=== PATIENT | male | born 1985 | race Caucasian/White ===

== ENCOUNTER → 2020-07-31 | Outpatient (CLI) | payer OTHER ==
[~2020-07-31] MED LIST: MELO7.5T29 PO
--- NOTE | 2020-07-31 12:31 | PDOC1 ---
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 Patient ports pain was fairly immediate and then got worse as time went on and has been worse over the past 2 years with significant weakness and tingling in the right leg mostly in the posterior lateral thigh anterior thigh medial thigh into the medial lower leg to some extent but mostly in the upper thigh and back patient reports is in the back and right hip as well described as constant shooting intermittent intensity worse with activity walking standing changing positions better with sitting or laying down does not awaken her from sleep at night does not affect his bowel bladder control but does affect is ability to walk as his leg fatigues very sign ificantly on the right side. Patient scribes as constant shooting radiating intermittent intensity but always present. Patient rates his disability rating 0-10 10 being the worst is a 1 with family home responsibilities social activity sexual behavior and self-care 5 with recreational activities and to with life support activities. Patient did have an MRI scan of the lumbar spine dated July 05, 2018 showing broad-based right foraminal disc protrusion at L4-5 measuring 3 mm with mild foraminal narrowing. Patient reports no loss of motor function but significant fatigability with even walking more than 10 to 15 minutes. Patient reports no bowel or bladder incontinence no motor or sensory loss. PAST MEDICAL HISTORY: PMH: No major medical problems or conditions PREVIOUS SURGERIES: Past Surgical Hx: Septoplasty 2019 CURRENT MEDICATIONS: Current Meds: Active Scripts Medications Dose Route/Sig Max Daily Dose Days Date Category Meloxicam 7.5 Mg Tablet 1 Tab PO DAILY 30 07/31/20 Reported ALLERGIES; Allergies: Coded Allergies: No Known Drug Allergies (Unverified , 07/31/20) FAMILY HISTORY: Family Hx: No major medical problems or conditions he is aware of SOCIAL HISTORY: Social Hx: Patient does not drink alcohol does not smoke not use any illegal illicit or recreational drugs is lives with his spouse 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 Extraocular movements are intact and symmetrical. Oral cavity: Mucous membranes moist and pink. Dentition is intact. NECK: Shows anterior throat supple without palpable lymphadenopathy noted. Swallow reflex symmetrical. CHEST: Shows normal on inspection. Breath sounds are clear bilaterally, no rales rhonchi wheezes auscultated. HEART: Shows S1, S2 clear. No murmurs auscultated. ABDOMEN: Soft, nontender, nondistended, flat. No palpable organomegaly is noted. No rebound or guarding demonstrated. BACK: Shows spine grossly in the midline. Normal-appearing cervical lordotic curvature. There is slightly increased thoracic kyphosis, some minor flattening of the lumbar lordotic curvature. Lumbar paraspinous muscles show symmetrical on inspection, on palpation shows some moderate tenderness diffusely throughout the upper, middle and lower distribution of the paraspinous muscles without specific trigger points, without radiation of pain. The patient has good rotational motion of the lumbar spine, both laterally as well as extension and flexion without significant difficulty. No tenderness over the spinous processes, sacrum or sacroiliac regions. EXTREMITIES: Lower extremities show deep tendon reflexes 2+ in the patellar and tendo calcaneus tendons. Motor exam is 5 on a scale of 5 with right dorsiflexion, extension, quadriceps and hamstring flexion and 5/5 on the left. Peripheral pulses are 1+ posterior tibial. No peripheral edema is noted bilaterally. Lower extremities are warm and dry to touch, equal in color and appearance. Straight leg raise noted to be negative bilaterally. Gaenslen's and Brennan's maneuvers are negative as well. The patient is able to stand, stand on her toes that difficulty loss of balance walks with a normal-appearing gait does not appear to favor the right or left lower extremity significantly is not use any assistive devices to ambulate. SKIN: Shows warm and dry, good turgor. No edema. No sores, rashes or bruising throughout. IMPRESSION: Impression: 35-year-old male with approximate 2-year history low back pain right lower extremity pain with weakness in the right lower extremity in an L4-5 dermatomal distribution MRI scan lumbar spine as noted Plan: Options were discussed with the patient including conservative regular management physical therapies interventional techniques he like to pursue dimensional techniques. Patient has physical therapy starting again next week and we discussed a lumbar epidural steroid injection using descriptions as well as anatomical models to describe the procedure. Patient will wait for preauthorization and return for lumbar epidural steroid injection translaminar approach at the L4-5 level. In the meantime we will call in a prescription for Medrol Dosepak patient was given instructions will side effects beware with the medication. MATTHIAS CINTRON MD Jul 31, 2020 12:31
== END | disposition home or self-care (01) ==
LOC: PNCL 10:56
PROVIDERS: ATTEND Anesthesiology
DX: M54.5 Low back pain (principal); M79.604 Pain in right leg; R53.1 Weakness; Z79.899 Other long term (current) drug therapy
CPT/HCPCS: 99205; G0463

== ENCOUNTER → 2020-08-17 | Outpatient (CLI) | payer OTHER ==
[~2020-08-17] MED LIST changes: +ERGO500027 PO; +IOHEXOL 180 MG/ML 10 ML VIAL. ONE; +THIA50TA4 PO; +methylPREDNISolone ACETATE 40 MG/ML VIAL. ONE; +methylPREDNISolone ACETATE 80 MG/ML VIAL. ONE
--- NOTE | 2020-08-17 10:29 | PDOC ---
Progress Note - Pain Clinic Date of Service: DOS: DATE: 08/17/20 TIME: 10:27 Diagnosis: Dx: Lumbar radiculopathy with lumbar degenerative disease and lumbar herniated disc History or Present Illness: HPI: 35-year-old male returns follow-up status post initial evaluation preauthorization for lumbar epidural steroid injection. Patient reports still significant pain low back right lower extremity significantly not different after last visit although the Medrol Dosepak that we try did help for few days and decrease the pain but the pain is back patient reports is in the low back right lower extremity posterior gluteus posterior lateral thigh anterior thigh anteromedial thigh medial lower leg patient ports dull and shooting radiating constant at times with walking activity patient reports no loss of motor function no bowel or bladder incontinence. Patient rates her pain as a 4 on a scale of 10 is worse over the past week 2 on average to its least and is a 2 today. Physical Exam: VS: Pressure is 120/87 pulse 67 respirations 16 temperature is 98.1 F height is 68 inches weight is 185 pounds PE: PHYSICAL EXAMINATION: GENERAL: The patient is awake, alert, oriented, appropriate, very pleasant demeanor HEENT: Shows normocephalic, atraumatic. Extraocular movements are intact and symmetrical. Oral cavity: Mucous membranes moist and pink. NECK: Shows anterior throat supple without palpable lymphadenopathy noted. Swallow reflex symmetrical. CHEST: Shows normal on inspection. Breath sounds are clear bilaterally. HEART: Shows S1, S2 clear. No murmurs auscultated. ABDOMEN: Soft, nontender, nondistended. No palpable organomegaly is noted. No rebound or guarding demonstrated. BACK: Shows spine grossly in the midline. Normal-appearing cervical lordotic curvature. There is mildly increased thoracic kyphosis, some flattening of the lumbar lordotic curvature. Lumbar paraspinous muscles show symmetrical on inspection, on palpation shows some moderate tenderness diffusely throughout the upper, middle and lower distribution of the paraspinous muscles, but without specific trigger points, without radiation of pain. The patient has good rotational motion of the lumbar spine, both laterally as well as extension and flexion without significant difficulty. No tenderness over the spinous processes, sacrum or sacroiliac regions. EXTREMITIES: Lower extremities show deep tendon reflexes 2+ in the patellar and tendo calcaneus tendons. Motor exam is 5 on a scale of 5 with right dorsiflexion, extension, quadriceps and hamstring flexion and 5/5 on the left. Peripheral pulses are 1+ posterior tibial. No peripheral edema is noted bilaterally. Lower extremities are warm and dry to touch, equal in color and appearance SKIN: Shows warm and dry, good turgor. No edema. No sores, rashes or bruising throughout. Procedure: Procedure: Options discussed with the patient. Patient chart was reviewed his current medication regimen updated current review of systems updated today as well. We will proceed with a lumbar epidural steroid injection today with fluoroscopic guidance. Risks were discussed including but not limited to: Bleeding, infection, possibility of epidural hematoma and subsequent neurological compromise, dural puncture, headaches, spinal cord and/or nerve damage, side effects of steroid medication, and poor results regarding pain control. Patient understands wished to proceed. Patient will return to clinic in approximately 2 weeks for follow-up, was counseled as to return appointment activity level and side effects to be aware of. Medication Injected: Med Injected: Procedure is lumbar epidural steroid injection under local anesthetic using sterile prep and drape at the L4-5 level using C-arm fluoroscopic guidance in both AP and lateral views medications injected is 120 mg Depo-Medrol + 10 mL preservative-free normal saline and 2 mL contrast- condition at discharge is stable patient tolerated procedure well had no complications. Condition at Discharge: Condition at Discharge: Patient discharge is stable, patient tolerated procedure well and had no complications. MATTHIAS CINTRON MD Aug 17, 2020 10:29
== END | disposition home or self-care (01) ==
LOC: PNCL 09:29
PROVIDERS: ATTEND Anesthesiology
DX: M51.16 Intervertebral disc disorders with radiculopathy, lumbar region (principal); Z79.899 Other long term (current) drug therapy; Z98.890 Other specified postprocedural states
CPT/HCPCS: 62323; J1030; J1040; Q9965

== ENCOUNTER → 2020-08-31 | Outpatient (CLI) | payer OTHER ==
--- NOTE | 2020-08-31 11:16 | PDOC ---
Progress Note - Pain Clinic Date of Service: DOS: DATE: 08/31/20 TIME: 11:13 Diagnosis: Dx: Lumbar radiculopathy with lumbar degenerative disease and lumbar herniated disc History or Present Illness: HPI: 35-year-old male returns follow-up status post lumbar epidural steroid action x1. Patient reports about 100% improvement for the first day or so and then the pain returned in the low back and the right lower extremity posterior gluteus posterior lateral thigh anterior thigh groin medial thigh medial lower leg on the right side only. Patient reports no new motor or sensory deficits no new bowel or bladder incontinence or other complaints but still significant pain with walking standing changing positions better with sitting or laying down generally is not awakening from sleep at night. Patient reports the pain is at worst a 2 on a scale of 10 last week 1 on average 1 its least. Patient reports no new motor or sensory deficits no new bowel or bladder incontinence or other complaints. Physical Exam: VS: Pressure is 122/80 pulse 68 respirations 16 temperature 97.9 F weight is 185 pounds PE: PHYSICAL EXAMINATION: GENERAL: The patient is awake, alert, oriented, appropriate, very pleasant demeanor HEENT: Shows normocephalic, atraumatic. Extraocular movements are intact and symmetrical. NECK: Shows anterior throat supple without palpable lymphadenopathy noted. Swallow reflex symmetrical. CHEST: Shows normal on inspection. Breath sounds are clear bilaterally. HEART: Shows S1, S2 clear. No murmurs auscultated. ABDOMEN: Soft, nontender, nondistended. No palpable organomegaly is noted. BACK: Shows spine grossly in the midline. Normal-appearing cervical lordotic curvature. There is slightly increased thoracic kyphosis, some minor flattening of the lumbar lordotic curvature. Lumbar paraspinous muscles show symmetrical on inspection, on palpation shows some moderate tenderness diffusely throughout the upper, middle and lower distribution of the paraspinous muscles, but without specific trigger points, without radiation of pain. The patient has good rotational motion of the lumbar spine, both laterally as well as extension and flexion without significant difficulty. No tenderness over the spinous processes, sacrum or sacroiliac regions. EXTREMITIES: Lower extremities show deep tendon reflexes 2+ in the patellar and tendo calcaneus tendons. Motor exam is 5 on a scale of 5 with right dorsiflexion, extension, quadriceps and hamstring flexion and 5/5 on the left. Peripheral pulses are no posterior tibial. No peripheral edema is noted bilaterally. Lower extremities are warm and dry to touch, equal in color and appearance. SKIN: Shows warm and dry, good turgor. No edema. No sores, rashes or bruising throughout. Procedure: Procedure: Options were discussed with the patient. Patient chart reviewed his current medication regimen updated current review of systems updated today as well. We will proceed with a second in the series lumbar epidural steroid injection today with fluoroscopic guidance. Risks were discussed including but not limited to: Bleeding, infection, possibility of epidural hematoma and subsequent neurological compromise, dural puncture, headaches, spinal cord and/or nerve damage, side effects of steroid medication, and poor results regarding pain control. Patient understands wished to proceed. Patient return to clinic in approximately 2 weeks for follow-up, was counseled to return appointment activity level, and side effects to be aware of. Medication Injected: Med Injected: Procedure is lumbar epidural steroid injection under local anesthetic using sterile prep and drape at the L4-5 level using C-arm fluoroscopic guidance in both AP and lateral views medications injected is 120 mg Depo-Medrol + 10 mL preservative-free normal saline and 2 mL contrast- condition at discharge is stable patient tolerated procedure well had no complications. Condition at Discharge: Condition at Discharge: Edition at discharge stable, patient tolerated procedure well, and had no complications. MATTHIAS CINTRON MD Aug 31, 2020 11:16
== END | disposition home or self-care (01) ==
LOC: PNCL 10:11
PROVIDERS: ATTEND Anesthesiology
DX: M51.16 Intervertebral disc disorders with radiculopathy, lumbar region (principal); Z98.890 Other specified postprocedural states
CPT/HCPCS: 62323; J1030; J1040; Q9965

== ENCOUNTER → 2020-09-14 | Outpatient (CLI) | payer OTHER ==
[~2020-09-14] MED LIST changes: -ERGO500027 PO; +ERGO500089 PO
--- NOTE | 2020-09-14 10:37 | PDOC ---
Progress Note - Pain Clinic Date of Service: DOS: DATE: 09/14/20 TIME: 10:35 Diagnosis: Dx: Lumbar radiculopathy with lumbar degenerative disc disease and lumbar herniated disc History or Present Illness: HPI: 35-year-old male returns follow-up status post lumbar epidural steroid injection x2. Patient reports about 50% improvement overall in the low back and right lower extremity pain patient reports still some significant pain in the low back and the right leg posterior gluteus posterior lateral thigh lateral anterior th igh anterior medial thigh patient ports is aching and radiating worse with walking standing but better than it was increased activity to greater distance walking doing household activities work activities sleeping better at night does not awaken him from sleep. Patient reports the pain is a 2 on scale 10 is worse over the past week 1 on average 1 its least is a 1 today. Patient reports no new motor or sensory deficits no new bowel or bladder incontinence or other complaints. Physical Exam: VS: Pressure is 118/85 pulse 74 respirations are 20 temperature 98.0 F weight is 184 pounds PE: PHYSICAL EXAMINATION: GENERAL: The patient is awake, alert, oriented, appropriate, very pleasant demeanor HEENT: Shows normocephalic, atraumatic. Extraocular movements are intact and symmetrical. NECK: Shows anterior throat supple without palpable lymphadenopathy noted. Swallow reflex symmetrical. CHEST: Shows normal on inspection. Breath sounds are clear bilaterally. HEART: Shows S1, S2 clear. No murmurs auscultated. ABDOMEN: Soft, nontender, nondistended. No palpable organomegaly is noted. BACK: Shows spine grossly in the midline. Lumbar paraspinous muscles show symmetrical on inspection, on palpation shows some moderate tenderness diffusely throughout the upper, middle and lower distribution of the paraspinous muscles bilaterally, but without specific trigger points, without radiation of pain. The patient has good rotational motion of the lumbar spine, both laterally as well as extension and flexion without significant difficulty. No tenderness over the spinous processes, sacrum or sacroiliac regions. EXTREMITIES: Lower extremities show deep tendon reflexes 2+ in the patellar and tendo calcaneus tendons. Motor exam is 5 on a scale of 5 with right dorsiflexion, extension, quadriceps and hamstring flexion and 5/5 on the left. Peripheral pulses are 1+ posterior tibial. No peripheral edema is noted bilaterally. Lower extremities are warm and dry to touch, equal in color and appearance. SKIN: Shows warm and dry, good turgor. No edema. No sores, rashes or bruising throughout. Procedure: Procedure: Options were discussed with the patient. Patient's old chart was reviewed his current medication regimen updated current review of systems updated today as well. We will proceed with a third in the series lumbar epidural steroid injection today with fluoroscopic guidance. Risks were discussed including but not limited to: Bleeding, infection, possibility of epidural hematoma and subsequent neurological compromise, dural puncture, headaches, spinal cord and/or nerve damage, side effects of steroid medication, and poor results regarding pain control. Patient understands wished to proceed. Patient will return to clinic in approximate 2 weeks or as necessary, was counseled as to return appointment activity level and side effects to be aware of. Medication Injected: Med Injected: Procedure is lumbar epidural steroid injection under local anesthetic using sterile prep and drape at the L4-5 level using C-arm fluoroscopic guidance in both AP and lateral views medications injected is 120 mg Depo-Medrol + 10 mL preservative-free normal saline and 2 mL contrast- condition at discharge is stable patient tolerated procedure well had no complications. Condition at Discharge: Condition at Discharge: Condition at discharge stable, patient tolerated procedure well and had no complications. MATTHIAS CINTRON MD Sep 14, 2020 10:37
== END | disposition home or self-care (01) ==
LOC: PNCL 09:37
PROVIDERS: ATTEND Anesthesiology
DX: M51.16 Intervertebral disc disorders with radiculopathy, lumbar region (principal); Z98.890 Other specified postprocedural states
CPT/HCPCS: 62323; J1030; J1040; Q9965

== ENCOUNTER → 2020-09-28 | Outpatient (CLI) | payer OTHER ==
[~2020-09-28] MED LIST changes: +ERGO500027 PO; -ERGO500089 PO; -IOHEXOL 180 MG/ML 10 ML VIAL. ONE; -methylPREDNISolone ACETATE 40 MG/ML VIAL. ONE; -methylPREDNISolone ACETATE 80 MG/ML VIAL. ONE
--- NOTE | 2020-09-28 09:50 | PDOC ---
Progress Note - Pain Clinic Date of Service: DOS: DATE: 09/28/20 TIME: 09:47 Diagnosis: Dx: Lumbar radiculopathy with lumbar degenerative disease and lumbar herniated disc Right sacroiliitis History or Present Illness: HPI: 35-year-old male returns follow-up status post lumbar epidural steroid injections x3. Patient reports only about 50% improvement in low back pain in the right leg pain is better but the pain in the right posterior hip is still significant patient reports is radiating to the hip itself sometimes into the groin pulse into the hip posteriorly patient reports no further radiation to the lower extremity at this time patient reports is worse with change positions standing or sitting for prolonged periods generally does not awaken from sleep at night better with sitting or laying down patient reports he is currently doing physical therapy which is helpful but not getting the pain decreased completely patient reports his pain is a form scale 10 is worst in the past week 2 on average to its least and is a 2 today. Patient reports no new motor or sensory deficits no new bowel or bladder incontinence. Physical Exam: VS: Blood pressure is 108/77 pulse 71 respirations 16 temperature 98.1 F weight is 191 pounds PE: PHYSICAL EXAMINATION: GENERAL: The patient is awake, alert, oriented, appropriate, very pleasant demeanor HEENT: Shows normocephalic, atraumatic. Extraocular movements are intact and symmetrical. NECK: Shows anterior throat supple without palpable lymphadenopathy noted. Swallow reflex symmetrical. CHEST: Shows normal on inspection. Breath sounds are clear bilaterally. HEART: Shows S1, S2 clear. No murmurs auscultated. ABDOMEN: Soft, nontender, nondistended. No palpable organomegaly is noted. No rebound or guarding demonstrated. BACK: Shows spine grossly in the midline. Normal-appearing cervical lordotic curvature. There is slightly increased thoracic kyphosis, some minor flattening of the lumbar lordotic curvature. Lumbar paraspinous muscles show symmetrical on inspection, on palpation shows some moderate tenderness diffusely throughout the upper, middle and lower distribution of the paraspinous muscles but without specific trigger points, without radiation of pain. The patient has good rotational motion of the lumbar spine, both laterally as well as extension and flexion without significant difficulty. Patient has significant tenderness over the right posterior superior iliac spine as well as the right superior aspect of the sacroiliac joint but without radiation on palpation. Left side is nontender. EXTREMITIES: Lower extremities show deep tendon reflexes 2+ in the patellar and tendo calcaneus tendons. Motor exam is 5 on a scale of 5 with right dorsiflexion, extension, quadriceps and hamstring flexion and 5/5 on the left. Peripheral pulses are 1+ posterior tibial. No peripheral edema is noted bilaterally. Lower extremities are warm and dry to touch, equal in color and appearance. Gaenslen's maneuver is positive on the right only. SKIN: Shows warm and dry, good turgor. No edema. No sores, rashes or bruising throughout. Procedure: Procedure: Options discussed with the patient. Patient will chart reviews his current medication regimen updated current review of systems updated today as well. We will preauthorize patient for a right sacroiliac joint injection. Patient was shown some stretching exercises to do for the sacroiliac joints as well and will continue with physical therapy as scheduled. Medication Injected: Med Injected: None Condition at Discharge: Condition at Discharge: Condition at discharge is stable. MATTHIAS CINTORN MD Sep 28, 2020 09:50
== END | disposition home or self-care (01) ==
LOC: PNCL 09:30
PROVIDERS: ATTEND Anesthesiology
DX: M51.16 Intervertebral disc disorders with radiculopathy, lumbar region (principal); M46.1 Sacroiliitis, not elsewhere classified; Z79.899 Other long term (current) drug therapy
CPT/HCPCS: 99212; G0463

== ENCOUNTER → 2020-10-12 | Outpatient (CLI) | payer OTHER ==
[~2020-10-12] MED LIST changes: +BUPIVACAINE MPF 0.25% 10 ML VIAL. ONE; +IOHEXOL 180 MG/ML 10 ML VIAL. ONE; +methylPREDNISolone ACETATE 80 MG/ML VIAL. ONE
--- NOTE | 2020-10-12 09:39 | PDOC ---
Progress Note - Pain Clinic Date of Service: DOS: DATE: 10/12/20 TIME: 09:35 Diagnosis: Dx: Lumbar radiculopathy with lumbar degenerative disc disease and lumbar herniated disc Right sacroiliitis History or Present Illness: HPI: 35-year-old male returns for follow-up status post lumbar epidural steroid injections x3. Patient has clinical symptoms of right sacroiliitis and we had improved him for his right sacroiliac joint injection today. Patient is obtained authorization like to proceed. Patient returns still significant pain in the posterior hip on the right side worse with walking standing changing positions without significant difference or change since last evaluation. Patient reports the pain is radiating aching dull and tight in the right hip and into the gluteus as well as some in the low back. Patient rates as a 4 on a scale 10 is worse over the past week 3 on average to its least is a 3 today. Patient reports he is continue to do physical therapy and doing most this on his own as well at home which he feels is slightly helpful. Reports no new motor or sensory deficits no new bowel or bladder incontinence or other complaints. Physical Exam: VS: Blood pressure is 112/74 pulse 67 respiration 16 temperature 90.3 F weight is 193 PE: PHYSICAL EXAMINATION: GENERAL: The patient is awake, alert, oriented, appropriate, very pleasant ralph anor HEENT: Shows normocephalic, atraumatic. Extraocular movements are intact and symmetrical. Oral cavity: Mucous membranes moist and pink. NECK: Shows anterior throat supple without palpable lymphadenopathy noted. Swallow reflex symmetrical. CHEST: Shows normal on inspection. Breath sounds are clear bilaterally, no rales or rhonchi. HEART: Shows S1, S2 clear. No murmurs auscultated. ABDOMEN: Soft, nontender, nondistended, flat. No palpable organomegaly is noted. BACK: Shows spine grossly in the midline. Normal-appearing cervical lordotic curvature. There is slightly increased thoracic kyphosis, some minor flattening of the lumbar lordotic curvature. Lumbar paraspinous muscles show symmetrical on inspection, on palpation shows some moderate tenderness diffusely throughout the upper, middle and lower distribution of the paraspinous muscles, but without specific trigger points, without radiation of pain. The patient has good rotational motion of the lumbar spine, both laterally as well as extension and flexion without significant difficulty. Patient shows moderate to significant tenderness over the posterior superior iliac spine on the right as well as the superior aspect of the sacroiliac region. Left is nontender. EXTREMITIES: Lower extremities show deep tendon reflexes 2+ in the patellar and tendo calcaneus tendons. Motor exam is 5 on a scale of 5 with right dorsiflexio n, extension, quadriceps and hamstring flexion and 5/5 on the left. Peripheral pulses are 1+ posterior tibial. No peripheral edema is noted bilaterally. Lower extremities are warm and dry to touch, equal in color and appearance. Patient does still have a mildly positive Gaenslen's maneuver on the right side only with external rotation of the right hip and posterior displacement of the lower leg with significant pain in the sacroiliac region. Left side is negative. SKIN: Shows warm and dry, good turgor. No edema. No sores, rashes or bruising throughout. Procedure: Procedure: Options were discussed with the patient. Patient's old chart reviews his current medication regimen updated current review of systems updated today as well. We will proceed with a right sacroiliac joint injection today with fluoroscopic guidance. Risks were discussed including but not limited to bleeding infection possibility of intravascular injection sequelae spread to local anesthetic numbness side effects of steroid medication and portal scarring pain control. Patient understands wished to proceed. Return to clinic in approximate 4 weeks for follow-up was counseled as return appointment activity level and side effects to be aware of. Medication Injected: Med Injected: Under sterile prep and drape using C-arm fluoroscopic guidance, right sacroiliac joint injected using 3 cc 0.25% bupivacaine +80 mg Depo-Medrol +2 cc contrast. Condition at discharge is stable, patient tolerated procedure well and had no complications. Condition at Discharge: Condition at Discharge: Condition at discharge stable, patient with the procedure well and had no complications. MATTHIAS CINTRON MD Oct 12, 2020 09:39
--- NOTE | 2020-10-12 09:40 | PDOC4 ---
PROCEDURE Procedure Patient was consented for right sacroiliac joint injection. Risks were disc ussed including but not limited to bleeding infection possibility of intravascular injection sequelae, spread of local anesthetic and numbness, exposure fluoroscopy, and poor results regarding pain control. Patient understands wished to proceed. Under sterile prep and drape using C-arm fluoroscopic guidance, right sacroiliac joint injected using 3 cc 0.25% bupivacaine +80 mg Depo-Medrol +2 cc contrast. Condition at discharge is stable, patient tolerated procedure well and had no complications. MATTHIAS CINTRON MD Oct 12, 2020 09:40
== END | disposition home or self-care (01) ==
LOC: PNCL 08:31
PROVIDERS: ATTEND Anesthesiology
DX: M46.1 Sacroiliitis, not elsewhere classified (principal); M51.16 Intervertebral disc disorders with radiculopathy, lumbar region; Z79.899 Other long term (current) drug therapy
CPT/HCPCS: G0260; J1040; J3490; Q9965; 27096